=== PATIENT | female | born 1995 | race African-American/Black ===

== ENCOUNTER 2017-05-05 23:51 | Emergency (ER) | payer OTHER ==
[2017-05-06 01:38] VITALS: BP 113/80; PULSE 103; TEMP 98.7; BMI 19.6
--- NOTE | 2017-05-06 01:45 | PDOC ---
Attending Attestation - Resident Resident Name: Afua Sarmiento - HPI HPI: 05/08/17 16:23 pt presents to the ED complaining of lower abdominal pain. Denies other complaints. 12 weeks . Reports normal US in OB's office during this . - Physicial Exam PE: 05/08/17 16:26 Abdomen is non tender on my exam. + IUP on transabdominal bedside US.
--- NOTE | 2017-05-06 02:37 | PDOC ---
History of Present Illness - General Chief Complaint: Vaginal Bleeding Stated Complaint: CRAMPS/12 WEEKS Time Seen by Provider: 05/06/17 01:37 History Source: Patient Exam Limitations: No Limitations - History of Present Illness Initial Comments: This is a 21 yo female (about 12 weeks confirmed by OB with US) who presents with right upper abdominal/right lower chest pain. The pain started earlier today and was on-and-off for hours, then became constant at about 9 pm. She describes it as 10/10, sharp, radiating to the right mid- and upper-back, worsened with eating and deep breathing, and not improved with Tylenol (last dose at about 11 pm). She notes nausea and two episodes of vomiting since 9 pm, as well as mild constipation which is not outside of her baseline. She denies any fever, chills, diarrhea, vaginal bleeding, vaginal discharge, painful urination, or other symptoms. Past History - Past Medical History Allergies/Adverse Reactions: Allergies Allergy/AdvReac Type Severity Reaction Status Date / Time No Known Allergies Allergy Verified 05/06/17 01:35 Home Medications: Ambulatory Orders Ibuprofen [Motrin] 600 mg PO TID #20 tablet 03/09/14 NK [No Known Home Medication] 03/09/14 Penicillin V Potassium [Pen Vee K -] 250 mg PO TID #20 tablet 03/09/14 Suicide Attempt (Hx): No - Immunization History Immunization Up to Date: Yes - Psycho/Social/Smoking Cessation Hx Anxiety: No Suicidal Ideation: No Smoking History: Never smoked Have you smoked in the past 12 months: No Information on smoking cessation initiated: No Hx Alcohol Use: No Drug/Substance Use Hx: No Substance Use Type: None Review of Systems - Review of Systems Able to Perform ROS?: Yes Constitutional: No: Chills, Fever, Unexplained wgt Loss HEENTM: No: Nose Congestion, Throat Pain Respiratory: Yes: Shortness of Breath. No: Cough Cardiac (ROS): Yes: Chest Pain (right lower chest wall pain). No: Lightheadedness, Palpitations ABD/GI: Yes: Constipated (mild), Nausea, Vomiting. No: Diarrhea : No: Burning, Dysuria, Discharge Musculoskeletal: No: Back Pain, Neck Pain Integumentary: No: Bruising, Rash Neurological: No: Headache, Numbness, Tingling, Weakness, Dizziness Endocrine: No: Unexplained Weight Gain, Unexplained Weight Loss *Physical Exam - Vital Signs Last Vital Signs Temp Pulse Resp BP Pulse Ox 98.7 F 103 H 14 113/80 100 05/06/17 01:35 05/06/17 01:35 05/06/17 01:35 05/06/17 01:35 05/06/17 01:35 - Physical Exam General Appearance: Yes: Nourished. No: Apparent Distress HEENT: positive: EOMI, Normal Voice, Hearing Grossly Normal. negative: Scleral Icterus (R), Scleral Icterus (L), Nasal Congestion Neck: positive: Trachea midline, Supple. negative: Tender, Rigid Respiratory/Chest: positive: Lungs Clear, Normal Breath Sounds. negative: Respiratory Distress, Crackles, Rhonchi, Stridor, Wheezing Cardiovascular: positive: Regular Rhythm, Regular Rate. negative: Murmur Gastrointestinal/Abdominal: positive: Normal Bowel Sounds, Tender (epigastric and RUQ mild tenderness to palpation), Soft, Other (visibly gravid). negative: Organomegaly, Pulsatile Mass, Guarding Musculoskeletal: positive: Normal Inspection. negative: Decreased Range of Motion, Vertebral Tenderness Extremity: positive: Normal Capillary Refill, Normal Inspection, Normal Range of Motion. negative: Tender, Cyanosis Integumentary: positive: Normal Color, Dry, Warm. negative: Erythema, Rash, Bruising Neurologic: positive: email marketing manager II-XII NML intact, Fully Oriented, Alert, Normal Mood/ Affect, Normal Response, Motor Strength 5/5 Procedures - Bedside Ultrasound Bedside Ultrasound: supervisor metal hanging Other: IUP with FHR about 140 and frequent movement ED Treatment Course - LABORATORY CBC & Chemistry Diagram: 05/06/17 02:55 05/06/17 02:55 Medical Decision Making - Medical Decision Making 21 yo female 12 wks , reports US showing IUP, getting OB care. Presents with RUQ/right lower chest wall pain this evening. Exam with RUQ ttp and right lower chest wall tenderness to compression. Ddx includes ectopic , PE, cholecystitis, UTI wwo pyelonephritis, pancreatitis, costochondritis. Ordered are CBC, CMP, lipase, beta-hCG quant, UA w/ culture. Pain improves while in the ED without medications. Bedside US early OB shows IUP with FHR around 140, no pelvic free fluid. Bedside RUQ US shows GB without stones, wall thickening, or pericholecystic fluid. Bedside right kidney US without hydronephrosis. UA is negative and the patient does want to go home. She is advised to take Tylenol for pain and return for any emergency concerns. She will follow up with her LEAD SIMULATION MODELING ENGINEER on Friday as scheduled. *DC/Admit/Observation/Transfer Diagnosis at time of Disposition: Acute chest wall pain - Discharge Dispostion Disposition: HOME Condition at time of disposition: Stable Admit: No - Patient Instructions Printed Discharge Instructions: DI for Costochondritis Additional Instructions: You were seen tonight for right lower chest wall pain. Most likely this is musculoskeletal in nature, meaning a muscle strain/sprain or inflammation around the ribs. We checked your blood and urine and there were no concerning laboratory findings. Please continue to take Tylenol 650 mg every 4-6 hours for this pain. You will need to follow up with your primary doctor and your LEAD SIMULATION MODELING ENGINEER as scheduled on Friday, or return to the ED for fever, severe pain, vaginal bleeding, or other emergency symptoms. - Attestations Physician Attestion: 05/06/17 03:57 I, Dr. Afua Sarmiento, attest that this document has been prepared under my direction and personally reviewed by me in its entirety. I further attest, that it accurately reflects all work, treatment, procedures and medical decision -making performed by me.
[2017-05-06 02:52] LABS: URINE APPEARANCE CLEAR; URINE BILIRUBIN NEGATIVE (NEGATIVE); URINE BLOOD NEGATIVE (NEGATIVE); URINE COLOR LTYELLOW; URINE GLUCOSE (UA) NEGATIVE (NEGATIVE); URINE KETONE NEGATIVE (NEGATIVE); URINE LEUK ESTERASE NEGATIVE (NEGATIVE); URINE NITRITE NEGATIVE (NEGATIVE); URINE PROTEIN NEGATIVE (NEGATIVE); URINE UROBILINOGEN NEGATIVE mg/dL (0.2-1.0)
[2017-05-06 03:03] LABS: BASOPHIL 1.1 % (0-2.0); EOSINOPHIL 2.3 % (0-4.5); MCH 27.3 pg (25.7-33.7); MCHC 32.7 g/dl (32.0-36.0); MEAN CELL VOLUME 83.4 fl (80-96); NEUTROPHILS 65.2 % (42.8-82.8); PLATELET COUNT 225 K/MM3 (134-434); RDW 16.6 % (11.6-15.6); WHITE BLOOD COUNT 10.7 K/mm3 (4.0-10.0)
[2017-05-06 03:26] LABS: ALBUMIN 3.4 g/dl (3.4-5.0); ANION GAP 8 (8-16); BILIRUBIN,TOTAL 0.2 mg/dL (0.2-1.0); CALCIUM 8.9 mg/dL (8.5-10.1); CO2 26 mmol/L (21-32); CREATININE 0.7 mg/dL (0.55-1.02); GLUCOSE,RANDOM 95 mg/dL (74-106); SGOT/AST 16 U/L (15-37); SGPT/ALT 13 U/L (12-78)
[2017-05-06 03:41] LABS: ALK PHOS 71 U/L (45-117)
== END 2017-05-06 04:53 | disposition home or self-care (01) ==
LOC: JER 23:51
DX: O99.89 Other specified diseases and conditions complicating pregnancy, childbirth and the puerperium (principal); M94.0 Chondrocostal junction syndrome [Tietze]; Z3A.12 12 weeks gestation of pregnancy
CPT/HCPCS: 36415; 80053; 81003; 83690; 84702; 85025; 87086; 99282-25

== ENCOUNTER 2017-06-20 14:40 | Emergency (ER) | payer OTHER ==
[2017-06-20 14:47] VITALS: BP 115/62; PULSE 80; TEMP 98.3; BMI 21.6
--- NOTE | 2017-06-20 16:59 | PDOC ---
History of Present Illness - General Chief Complaint: Pain Stated Complaint: PCP SENT/std Time Seen by Provider: 06/20/17 16:43 History Source: Patient Exam Limitations: No Limitations - History of Present Illness Initial Comments: 06/20/17 16:53 06/20/17 16:54 My Chief Complaint: Patient here sent by VET ASSISTANT to have ceftriaxone injection History of present illness: Patient is a 21-year-old female sent here by Dr. Karen Acuna for an injection of ceftriaxone 250 mg IM to treat prophylactically for exposure to gonorrhea possibly chlamydia. Patient is 19 weeks . Patient has vial of ceftriaxone that was ordered by Dr. Galloway, vial to brought to pharmacy to have vial verified that the vial she has is ceftriaxone however due to it not being from here will order ceftriaxone 250 mg IM from our stock. Patient denies any pelvic pain or any vaginal discharge. Patient denies urinary symptoms.Pt.';s significant other tested positive for gonorrhea recently. 06/20/17 16:59 Timing/Duration: unsure Associated Symptoms: reports: denies symptoms Past History - Past Medical History Allergies/Adverse Reactions: Allergies Allergy/AdvReac Type Severity Reaction Status Date / Time No Known Allergies Allergy Verified 06/20/17 14:42 Home Medications: Ambulatory Orders NK [No Known Home Medication] 06/20/17 Suicide Attempt (Hx): No Other medical history: none - Immunization History Immunization Up to Date: Yes - Psycho/Social/Smoking Cessation Hx Anxiety: No Suicidal Ideation: No Smoking History: Never smoked Have you smoked in the past 12 months: No Information on smoking cessation initiated: No Hx Alcohol Use: No Drug/Substance Use Hx: No Substance Use Type: None Review of Systems - Review of Systems Able to Perform ROS?: Yes Constitutional: No: Symptoms Reported HEENTM: No: Symptoms Reported Respiratory: No: Symptoms reported Cardiac (ROS): No: Symptoms Reported ABD/GI: No: Symptoms Reported : Yes: Other (exposed to gonorrhea) Musculoskeletal: No: Symptoms Reported Integumentary: No: Symptoms Reported *Physical Exam - Vital Signs Last Vital Signs Temp Pulse Resp BP Pulse Ox 98.3 F 80 18 115/62 100 06/20/17 14:44 06/20/17 14:44 06/20/17 14:44 06/20/17 14:44 06/20/17 14:44 - Physical Exam General Appearance: Yes: Appropriately Dressed Respiratory/Chest: positive: Lungs Clear, Normal Breath Sounds. negative: Chest Tender, Respiratory Distress Cardiovascular: positive: Regular Rhythm, Regular Rate, S1, S2 Gastrointestinal/Abdominal: positive: Normal Bowel Sounds, Soft. negative: Tender, Organomegaly, Distended, Guarding, Rebound, Tenderness, Hepatomegaly, Spleenomegaly Integumentary: positive: Normal Color Neurologic: positive: Alert, Normal Response Medical Decision Making - Medical Decision Making 06/20/17 16:59 Patient is a 21-year-old female sent here by Dr. Karen Acuna for an injection of ceftriaxone 250 mg IM to treat prophylactically for exposure to gonorrhea possibly chlamydia. Patient is 19 weeks . Patient has vial of ceftriaxone that was ordered by Dr. Galloway, vial to brought to pharmacy to have vial verified that the vial she has is ceftriaxone however due to it not being from here will order ceftriaxone 250 mg IM from our stock. Patient denies any pelvic pain or any vaginal discharge. Patient denies urinary symptoms.Pt.'; s significant other tested positive for gonorrhea recently. Pt. also has rx for azithromycin and had it filled will take at home. 06/20/17 17:00 exposure to STD gonorrhea PLAN: ceftrioxone 250 mg Im PT TO FOLLOW INSTRUCTIONS WITH [employer] CONSULTANT 06/20/17 17:38 TAKE AZITHROMYCIN ORDERED BY DR. ACUNA 06/20/17 17:47 *DC/Admit/Observation/Transfer Diagnosis at time of Disposition: Exposure to sexually transmitted disease (STD) - Discharge Dispostion Disposition: HOME Condition at time of disposition: Stable - Patient Instructions Additional Instructions: TAKE AZITHROMYCIN ORDERED BY YOUR DOCTOR FRANCIA RETURN TO EMERGENCY ROOM IF ANY PELVIC DISCOMFORT, FEVER, NAUSEA OR VOMITING OR ANY NEW SYMPTOMS DEVELOP TODAY YOU WERE GIVEN INJECTION OF ROCEPHIN (CEFTRIOXONE) USE CONDOMS WITH SEXUAL RELATIONS PATIENT VOICED UNDERSTANDING OF DISCHARGE INSTRUCTIONS AND ALL QUESTIONS WERE ANSWERED
== END 2017-06-20 17:52 | disposition home or self-care (01) ==
LOC: JERFT 14:40
DX: O98.212 Gonorrhea complicating pregnancy, second trimester (principal); A54.89 Other gonococcal infections; Z3A.19 19 weeks gestation of pregnancy
CPT/HCPCS: 96372; 99281-25

== ENCOUNTER 2017-09-18 08:45 | Emergency (ER) | payer OTHER ==
[2017-09-18 08:56] VITALS: BMI 22.6
--- NOTE | 2017-09-18 08:56 | PDOC ---
History of Present Illness <Eben Melissa - Last Filed: 09/18/17 14:17> - History of Present Illness Initial Comments: 09/18/17 09:54 Ms. Mcmillan is a 21 yo at 31 weeks gestation with no pmh who presents complaining of a 2 day history of R chest pain radiating to her R arm. She reports she was at work when her chest started hurting and she experienced the right arm pain. 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 She says the pain had initially caused her to sit down and rest but had mostly resolved; it got worse yesterday however and she reports she was tossing and turning all last night and was unable to sleep from the pain. The pain was initially quick in onset and is back to it's original level. She reports she is having trouble catching her breath and had subjective fevers/chills last night. The patient denies headache and dizziness. Denies nausea, vomit, diarrhea and constipation. Denies dysuria, frequency, urgency and hematuria. Allergies: NKDA VERIFICATION REP: Jazmine Leon (sp?) 09/18/17 11:16 <Pedro Pablo Christiansen - Last Filed: 09/18/17 14:36> - General Chief Complaint: Chest Pain Stated Complaint: CHEST PAIN (31 WKS ) Time Seen by Provider: 09/18/17 08:56 Past History <Eben Melissa - Last Filed: 09/18/17 14:17> - Past Medical History CVA: No COPD: No DVT: No - Immunization History Immunization Up to Date: Yes - Suicide/Smoking/Psychosocial Hx Smoking History: Never smoked Have you smoked in the past 12 months: No Information on smoking cessation initiated: No Hx Alcohol Use: No Drug/Substance Use Hx: No Substance Use Type: None <Pedro Pablo Christiansen - Last Filed: 09/18/17 14:36> - Past Medical History Allergies/Adverse Reactions: Allergies Allergy/AdvReac Type Severity Reaction Status Date / Time No Known Allergies Allergy Verified 09/18/17 08:51 Home Medications: Ambulatory Orders Iron 1 tab PO DAILY 09/18/17 Vits #93/Iron Fum/FA [ Formula Tablet] 1 each PO DAILY 12/07/ 17 Review of Systems - Review of Systems Comments:: 09/18/17 10:11 GENERAL/CONSTITUTIONAL: +1 day of fevers and chills. No weakness. HEAD, EYES, EARS, NOSE AND THROAT: No change in vision. No ear pain or discharge. No sore throat. CARDIOVASCULAR: +Right sided chest pain with associated shortness of breath RESPIRATORY: No cough, wheezing, or hemoptysis. GASTROINTESTINAL: No nausea, vomiting, diarrhea or constipation. GENITOURINARY: No dysuria, frequency, or change in urination. MUSCULOSKELETAL: No joint or muscle swelling or pain. No neck or back pain. SKIN: No rash NEUROLOGIC: No headache, vertigo, loss of consciousness, or change in strength/ sensation. ENDOCRINE: No increased thirst. No abnormal weight change HEMATOLOGIC/LYMPHATIC: No anemia, easy bleeding, or history of blood clots. ALLERGIC/IMMUNOLOGIC: No hives or skin allergy. <Pedro Pablo Christiansen - Last Filed: 09/18/17 14:36> *Physical Exam - Vital Signs Last Vital Signs Temp Pulse Resp BP Pulse Ox 97.7 F 81 18 120/78 100 09/18/17 08:52 09/18/17 14:08 09/18/17 14:08 09/18/17 14:08 09/18/17 14:08 <Eben Melissa - Last Filed: 09/18/17 14:17> - Vital Signs Last Vital Signs Temp Pulse Resp BP Pulse Ox 97.7 F 96 H 16 131/61 100 09/18/17 08:52 09/18/17 08:52 09/18/17 08:52 09/18/17 08:52 09/18/17 08:52 - Physical Exam Comments: 09/18/17 10:13 GENERAL: Awake, alert, and fully oriented HEAD: No signs of trauma, normocephalic, atraumatic EYES: PERRLA, EOMI, sclera anicteric, conjunctiva clear ENT: Auricles normal inspection, hearing grossly normal, nares patent, oropharynx clear without exudates. Moist mucosa NECK: Normal ROM, supple, no lymphadenopathy, JVD, or masses LUNGS: +Breathing rapidly, reproducible Right sided chest pain. Speaks full sentences, clear to auscultation bilaterally HEART: +Slightly tachy, regular rhythm, normal S1 and S2, no murmurs, rubs or gallops, peripheral pulses normal and equal bilaterally. ABDOMEN: Soft, nontender, normoactive bowel sounds. No guarding, no rebound. No masses EXTREMITIES: Normal inspection, Normal range of motion, no edema. No clubbing or cyanosis. NEUROLOGICAL: Cranial nerves II through XII grossly intact. Normal speech, normal gait, no focal sensorimotor deficits SKIN: Warm, Dry, normal turgor, no rashes or lesions noted. <Pedro Pablo Christiansen - Last Filed: 09/18/17 14:36> ED Treatment Course - LABORATORY CBC & Chemistry Diagram: 09/18/17 09:35 09/18/17 09:35 - ADDITIONAL ORDERS Additional order review: Laboratory Results 09/18/17 09/18/17 09/18/17 10:05 10:05 10:05 PT with INR 9.40 L INR 0.83 L PTT (Actin FS) 23.6 L D-Dimer 693 H Sodium Potassium Chloride Carbon Dioxide Anion Gap BUN Creatinine Creat Clearance w eGFR Random Glucose Calcium Total Bilirubin AST ALT Alkaline Phosphatase Creatine Kinase Troponin I B-Natriuretic Peptide Total Protein Albumin Urine Color Urine Appearance Urine pH Ur Specific Nash Urine Protein Urine Glucose (UA) Urine Ketones Urine Blood Urine Nitrite Urine Bilirubin Urine Urobilinogen Urine WBC (Auto) Urine RBC (Auto) Ur Epithelial Cells Urine Bacteria 09/18/17 09/18/17 09/18/17 10:05 09:35 09:35 PT with INR INR PTT (Actin FS) D-Dimer Sodium 137 Potassium 3.7 Chloride 105 Carbon Dioxide 25 Anion Gap 7 L BUN 5 L D Creatinine 0.8 Creat Clearance w eGFR > 60 Random Glucose 67 L D Calcium 8.8 Total Bilirubin 0.3 D AST 23 D ALT 28 D Alkaline Phosphatase 109 D Creatine Kinase 93 Troponin I < 0.02 B-Natriuretic Peptide 39.76 Total Protein 7.5 Albumin 3.1 L Urine Color Straw Urine Appearance Clear Urine pH 9.0 H D Ur Specific Nash 1.005 Urine Protein Negative Urine Glucose (UA) Negative Urine Ketones Negative Urine Blood Negative Urine Nitrite Negative Urine Bilirubin Negative Urine Urobilinogen Negative Urine WBC (Auto) 5 Urine RBC (Auto) 2 Ur Epithelial Cells Rare Urine Bacteria Rare 09/18/17 09:35 RBC 3.79 MCV 77.8 L MCHC 31.7 L RDW 15.7 H MPV 8.3 Neutrophils % 66.0 Lymphocytes % 22.2 Monocytes % 8.8 Eosinophils % 1.8 Basophils % 1.2 - RADIOLOGY Radiology Studies Ordered: Category Date Time Status RIBS RIGHT SIDE [RAD] Stat Radiology 09/18/17 09:39 Completed DUPLEX VASCUL US-2LEGS [US] Stat Ultrasound 09/18/17 09:38 Completed - Medications Given in the ED: ED Medications Discontinued Medications Generic Name Dose Route Start Last Admin Trade Name Sen PRN Reason Stop Dose Admin Acetaminophen 1,000 mg 09/18/17 09:30 09/18/17 09:49 Ofirmev Injection - IVPB 09/18/17 09:31 1,000 mg ONCE ONE Administration Sodium Chloride 1,000 mls @ 1,000 mls/hr 09/18/17 09:29 09/18/17 09:50 Normal Saline - IV 09/18/17 10:28 1,000 mls/hr ASDIR STA Administration Morphine Sulfate 4 mg 09/18/17 10:57 09/18/17 11:52 Morphine Injection - IVPUSH 09/18/17 10:58 4 mg ONCE ONE Administration <Eben Melissa - Last Filed: 09/18/17 14:17> - LABORATORY CBC & Chemistry Diagram: 09/18/17 09:35 09/18/17 09:35 <Pedro Pablo Christiansen - Last Filed: 09/18/17 14:36> Medical Decision Making - Medical Decision Making 09/18/17 10:16 Ms. Mcmillan presents with symptoms concerning for PE. Given tachycardia, pain, and hypercoagulable state will evaluate w/ d-dimer and duplex study. 09/18/17 11:21 Labs concerning for D-Dimer 693. Upon chart review patient noted to have presented for similar complaint on 05/06. VERIFICATION REP paged for consult. 09/18/17 11:[address] Arroyo. Recommended CTA with non-stress evaluation after by VERIFICATION REP if negative. Will comply. 09/18/17 11:49 Discussed risks/benefits of CTA while with patient including risks to fetus. Patient will sign off on procedure given evaluation needs and VERIFICATION REP recommendation. 09/18/17 14:26 No PE noted by PE. Will send to VERIFICATION REP for further evaluation. <Pedro Pablo Christiansen - Last Filed: 09/18/17 14:36> *DC/Admit/Observation/Transfer <Eben Melissa - Last Filed: 09/18/17 14:17> <Pedro Pablo Christiansen - Last Filed: 09/18/17 14:36> Diagnosis at time of Disposition: Acute chest wall pain - Discharge Dispostion Disposition: HOME - Patient Instructions Printed Discharge Instructions: DI for Atypical Chest Pain Additional Instructions: Please follow up with your primary doctor within 1 week for further evaluation of your chest pain. There was a nodule in your left lung that is likely harmless , but you need repeat imaging in 6 months as there is a small chance this could represent cancer. If you experience worsening chest pain, shortness of breath, or any other concerning symptoms, return to the ER immediately.
[2017-09-18] MEDS ORDERED: SODIUM CHLORIDE 1,000 ML IV STA ×2 (09:29→14:16)
[2017-09-18] MEDS ORDERED: ACETAMINOPHEN 1000 MG/100 ML VIAL (NON FORMULARY) IVPB ONE (09:30)
[2017-09-18 09:47] LABS: BASOPHIL 1.2 % (0-2.0); EOSINOPHIL 1.8 % (0-4.5); MCH 24.6 pg (25.7-33.7); MCHC 31.7 g/dl (32.0-36.0); MEAN CELL VOLUME 77.8 fl (80-96); MEAN PLT VOLUME 8.3 fl (7.5-11.1); PLATELET COUNT 264 K/MM3 (134-434); RDW 15.7 % (11.6-15.6); WHITE BLOOD COUNT 8.7 K/mm3 (4.0-10.0)
[2017-09-18] MEDS ORDERED: ACETAMINOPHEN INJECTION 100 ML IVPB ONE (09:47)
--- NOTE | 2017-09-18 09:50 | PDOC ---
Attending Attestation - Medical Decision Making 09/18/17 11:22 Dr. Casiano paged via phone answering service. Awaiting call back. 09/18/17 11:27 Dr. Willis responded to the page and the patients case was discussed Documentation prepared by Kraey Arevalo, acting as medical services assistant for Eben Melissa MD <Karey Arevalo - Last Filed: 09/18/17 11:27> - Resident Resident Name: Pedro Pablo Christiansen - ED Attending Attestation I have performed the following: I have examined & evaluated the patient, The case was reviewed & discussed with the resident, I agree w/resident's findings & plan, Exceptions are as noted - HPI HPI: 09/18/17 09:45 21 F , @ 31 weeks, with no PMH presents to ER with R sided chest pain and SOB. Pt states that her symptoms began 2 days ago with R chest and arm pain. She initially thought it was muscular, as she works in a correction and helps move patients. However, the pain progressively worsened to the point of being unable to take a deep breath. She states that she also feels short of breath at rest due to the pain in her chest. Pt denies F/C. Denies any traumatic injury. Denies abd pain. Denies vaginal discharge/bleeding or dysuria. - Physicial Exam PE: 09/18/17 09:50 "GENERAL: Awake, alert, and fully oriented, in no acute distress HEAD: No signs of trauma EYES: PERRLA, EOMI, sclera anicteric, conjunctiva clear ENT: Auricles normal inspection, hearing grossly normal, nares patent, oropharynx clear without exudates. Moist mucosa NECK: Nontender, no stepoffs, Normal ROM, supple, no lymphadenopathy, JVD, or masses LUNGS: Breath sounds equal, clear to auscultation bilaterally. No wheezes, and no crackles CHEST: R anterior chest wall TTP, no crepitus HEART: Regular rate and rhythm, normal S1 and S2, no murmurs, rubs or gallops ABDOMEN: Soft, gravid, nontender, normoactive bowel sounds. No guarding, no rebound. No masses EXTREMITIES: Normal range of motion, no edema. No clubbing or cyanosis. No cords, erythema, or tenderness NEUROLOGICAL: Cranial nerves II through XII intact. 5/5 strength and sensation in all extremities, Normal speech, normal gait SKIN: Warm, Dry, normal turgor, no rashes or lesions noted. " - Medical Decision Making 09/18/17 09:51 21 F 31 weeks , presenting with R sided pleuritic chest pain and SOB. Likely msk in etiology. However, presentation is concerning for PE given hypercoagulable state. Vitals wnl at this time, and pt with no evidence of DVT on exam. However, given symptoms and risk factors, will need to rule out PE. Also consider PNA or PTX. - Labs, ddimer, trop/BNP - CXR 09/18/17 11:21 CXR and rib XR unremarkable. Ddimer elevated >600. Labs otherwise unremarkable. Will consult soft shoe dancer for imaging recommendations 09/18/17 11:[address] Casiano, OB missile control pilot, who recommends obtaining CTA rather than V/Q or MRA to r/o PE. 09/18/17 14:17 CTA chest negative for PE. Pt to be transferred to L&D for monitoring at this time. <Eben Melissa - Last Filed: 09/18/17 14:17>
[2017-09-18 10:14] LABS: ALBUMIN 3.1 g/dl (3.4-5.0); ANION GAP 7 (8-16); BILIRUBIN,TOTAL 0.3 mg/dL (0.2-1.0); CALCIUM 8.8 mg/dL (8.5-10.1); CO2 25 mmol/L (21-32); CREATININE 0.8 mg/dL (0.55-1.02); GLUCOSE,RANDOM 67 mg/dL (74-106); SGOT/AST 23 U/L (15-37); SGPT/ALT 28 U/L (12-78); TOT PROT 7.5 g/dl (6.4-8.2)
[2017-09-18 10:15] LABS: ALK PHOS 109 U/L (45-117); CPK 93 IU/L (26-192); TROPONIN I < 0.02 ng/ml (0.00-0.05)
[2017-09-18 10:22] LABS: URINE APPEARANCE CLEAR; URINE BILIRUBIN NEGATIVE (NEGATIVE); URINE BLOOD NEGATIVE (NEGATIVE); URINE COLOR STRAW; URINE GLUCOSE (UA) NEGATIVE (NEGATIVE); URINE KETONE NEGATIVE (NEGATIVE); URINE NITRITE NEGATIVE (NEGATIVE); URINE PROTEIN NEGATIVE (NEGATIVE); URINE UROBILINOGEN NEGATIVE mg/dL (0.2-1.0)
[2017-09-18 10:24] LABS: URINE LEUK ESTERASE 3+ (NEGATIVE)
[2017-09-18 10:27] LABS: URINE BACTERIA RARE /hpf (NONE SEEN); URINE RBC 2 /hpf (0-3); URINE WBC 5 /hpf (3-5)
[2017-09-18] MEDS ORDERED: morphine CARPU-JECT 4 MG/1 ML DISP.SYRIN IVPUSH ONE (10:57)
[2017-09-18 11:24] LABS: PROTHROMBIN TIME (PATIENT) 9.4 SEC (9.98-11.88)
[2017-09-18 11:25] LABS: INR 0.83 (0.82-1.09)
[2017-09-18] MEDS ORDERED: morphine SULFATE 4 MG/ML VIAL ONE (11:46)
--- NOTE | 2017-09-18 15:10 | EKG ---
Test Reason : Blood Pressure : / mmHG Vent. Rate : 080 BPM Atrial Rate : 080 BPM P-R Int : 118 ms QRS Dur : 082 ms QT Int : 364 ms P-R-T Axes : 055 038 028 degrees QTc Int : 419 ms NORMAL SINUS RHYTHM POSSIBLE LEFT ATRIAL ENLARGEMENT BORDERLINE ECG WHEN COMPARED WITH ECG OF 18-SEP-2017 08:49, NO SIGNIFICANT CHANGE WAS FOUND Confirmed by ASTRID LY MD ([id number]) on 09/18/2017 3:09:58 PM Referred By: Confirmed By:ASTRID LY MD
[2017-09-18 15:51] VITALS: BP 115/66; PULSE 77; TEMP 98.7
[2017-09-18 17:59] LABS: URINE LEUK ESTERASE 3+ (NEGATIVE)
--- NOTE | 2017-09-23 14:39 | EKG ---
Test Reason : Blood Pressure : / mmHG Vent. Rate : 088 BPM Atrial Rate : 088 BPM P-R Int : 114 ms QRS Dur : 080 ms QT Int : 344 ms P-R-T Axes : 062 059 031 degrees QTc Int : 416 ms NORMAL SINUS RHYTHM NORMAL ECG NO PREVIOUS ECGS AVAILABLE Confirmed by MOJGAN FERNANDEZ, SUHA ([id number] on 09/23/2017 2:39:31 PM Referred By: Confirmed By:SUHA ULRICH MD
== END 2017-09-18 15:40 | disposition home or self-care (01) ==
LOC: JER 08:45
PROC: 3E0337Z Introduction of Electrolytic and Water Balance Substance into Peripheral Vein, Percutaneous Approach (ICD-10-PCS; principal; 2017-09-18)
DX: O99.89 Other specified diseases and conditions complicating pregnancy, childbirth and the puerperium (principal); R07.89 Other chest pain; Z3A.31 31 weeks gestation of pregnancy
CPT/HCPCS: 36415; 71101-TC-RT; 71275-TC; 80053; 81003; 81015; 82550; 83880; 84484; 85025; 85379; 85610; 85730; 93005; 93010; 93970-TC; 99283-25

== ENCOUNTER 2017-11-07 06:50 | Inpatient (IN) | payer OTHER ==
[2017-11-07] MEDS ORDERED: ELECTROLYTE-148 SOLN 1,000 ML IV SCH ×3 (07:00→08:30)
[2017-11-07] MEDS ORDERED: AMPICILLIN - 2 GM in SODIUM CHLORIDE 100 ML IVPB ONE (07:30)
[2017-11-07] MEDS ORDERED: AMPICILLIN SODIUM 2 GM VIAL ONE (07:32)
[2017-11-07] MEDS ORDERED: BUTORPHANOL TARTRATE 1 MG/ML VIAL IVPB ONE (08:16)
--- NOTE | 2017-11-07 08:20 | HP ---
Past Medical History - Primary Care Physician PCP:: Alisha Acuna - Admission Chief Complaint: Labor. Right labial cyst History of Present Illness: 21 P0 EDC EGA admitted due to labor no rom no bleeding +AFM History Source: Patient Limitations to Obtaining History: No Limitations - Past Medical History ...: 1 - Past Surgical History Past Surgical History: Yes: None Hx Myomectomy: No Hx Transabdominal Cerclage: No - Smoking History Smoking history: Never smoked Have you smoked in the past 12 months: No - Alcohol/Substance Use Hx Alcohol Use: No History of Substance Use: reports: None - Social History History of Recent Travel: Yes Home Medications - Allergies Allergies/Adverse Reactions: Allergies Allergy/AdvReac Type Severity Reaction Status Date / Time No Known Allergies Allergy Verified 11/07/17 07:49 - Home Medications Home Medications: Ambulatory Orders Iron 1 tab PO DAILY 09/18/17 Vit 93/Iron Fum/Folic [ Formula Tablet] 1 each PO DAILY Review of Systems - Review of Systems Constitutional: reports: No Symptoms Eyes: reports: No Symptoms HENT: reports: No Symptoms Neck: reports: No Symptoms Cardiovascular: reports: No Symptoms Respiratory: reports: No Symptoms Gastrointestinal: reports: Abdominal Pain Genitourinary: reports: No Symptoms Breasts: reports: No Symptoms Reported Musculoskeletal: reports: No Symptoms Integumentary: reports: No Symptoms Neurological: reports: No Symptoms Endocrine: reports: No Symptoms Hematology/Lymphatic: reports: No Symptoms Psychiatric: reports: No Symptoms Physical Exam - Maternity Vital Signs: Vital Signs Temperature 97.4 F L 11/07/17 08:00 Pulse Rate 77 11/07/17 08:00 Respiratory Rate 20 11/07/17 08:00 Blood Pressure 124/74 11/07/17 08:00 O2 Sat by Pulse Oximetry (%) Constitutional: Yes: Well Nourished, No Distress HENT: Yes: WNL Neck: Yes: WNL Cardiovascular: Yes: WNL Breast(s): Yes: WNL - Abdominal Exam/OB Fundal Height: 39 Number of Fetuses: Single Presentation: Vertex Contractions: Yes Regularity: Regular Intensity: Mild/Mod Monitor Mode: External Heart Rate Location: [facility] Category: I Accelerations: Non-Uniform Decelerations: None - Vaginal Exam/OB Dilatation (cm): 2 Effacement (%): 100 Amniotic Membrane Status: Bulging Presentation: Vertex/Position - Physical Exam Musculoskeletal: Yes: WNL Extremities: Yes: WNL Edema: No Integumentary: Yes: WNL ...Motor Strength: WNL Hemorrhage Risk Assessment - Risk Factors Assessment/Plan: ACTIve labor Cat 1 Plan admit' stadol or Epidura/ Problem List - Problems (1) contractions Code(s): O47.9 - FALSE LABOR, UNSPECIFIED Assessment/Plan IUP at 38.6 week labor Cat 1 No ROM Plan admit to LD anticipate vaginal delivery
[2017-11-07 08:25] VITALS: BMI 24.4
[2017-11-07 09:02] LABS: BASO % 0.8 % (0-2.0); EOS % 0.9 % (0-4.5); HEMATOCRIT 29.6 % (32.4-45.2); HEMOGLOBIN 8.9 GM/dL (10.7-15.3); LYMPH % 17.4 % (8-40); MCH 21.6 pg (25.7-33.7); MCHC 29.9 g/dl (32.0-36.0); MEAN CELL VOLUME 72.1 fl (80-96); MEAN PLT VOLUME 8.9 fl (7.5-11.1); MONO % 6.9 % (3.8-10.2); PLATELET COUNT 271 K/MM3 (134-434); RDW 16.9 % (11.6-15.6); WHITE BLOOD COUNT 9.8 K/mm3 (4.0-10.0)
[2017-11-07 09:11] LABS: ADD RBC MORPHOLOGY YES
[2017-11-07] MEDS ORDERED: PROMETHAZINE HCL 25 MG/1 ML VIAL IVPB ONE (09:15)
[2017-11-07 09:16] LABS: INR 0.86 (0.82-1.09); PROTHROMBIN TIME (PATIENT) 9.7 SEC (9.98-11.88)
[2017-11-07 09:19] LABS: ACTIVATED PTT 24.9 SECONDS (26.9-34.4)
[2017-11-07] MEDS ORDERED: BUTORPHANOL TARTRATE 1 MG/ML VIAL ONE ×2 (09:22)
[2017-11-07] MEDS ORDERED: PROMETHAZINE HCL 25 MG/1 ML VIAL ONE (09:22)
[2017-11-07 09:24] LABS: ANION GAP 10 (8-16); BLOOD UREA NITROGEN 6 mg/dL (7-18); CALCIUM 8.2 mg/dL (8.5-10.1); CHLORIDE 104 mmol/L (98-107); CO2 24 mmol/L (21-32); CREATININE 0.6 mg/dL (0.55-1.02); GLUCOSE,RANDOM 71 mg/dL (74-106); POTASSIUM 4.1 mmol/L (3.5-5.1); SODIUM 138 mmol/L (136-145)
[2017-11-07] MEDS: AMPICILLIN - 1 GM in SODIUM CHLORIDE 100 ML IVPB SCH ×3 (11:07→21:08)
[2017-11-07 12:46] LABS: ANISOCYTOSIS 2+; PLATELET ESTIMATE NORMAL
[2017-11-07] MEDS ORDERED: OXYTOCIN 20 UNITS in 0.9% NS 20 UNIT/1,000 ML INFUS.BAG IV ONE ×2 (14:20→16:23)
[2017-11-07] MEDS ORDERED: LIDOCAINE HCL 1% PRESERVATIVE FREE - 30ML VIAL ONE (14:20)
--- NOTE | 2017-11-07 15:07 | PN ---
Delivery - Delivery Vaginal Delivery: No Problems Type of Anesthesia: None Episiotomy/Laceration: None EBL (cc): 400 (shoulders delivered without complications) Delivery, Single - Stages of Labor Placenta: Yes: Spontaneous - Condition of Infant Infant Gender: Male Position: OA - Feeding Plan Initial Plan: Exclusive throughout hospitalization
[2017-11-07] MEDS ORDERED: BISACODYL 10 MG SUPP.RECT RC PRN (15:10)
[2017-11-07] MEDS ORDERED: METHYLERGONOVINE MALEATE 0.2 MG/1 ML AMP IM PRN (15:10)
[2017-11-07] MEDS ORDERED: BENZOCAINE 20% 57 GM BOTTLE TP PRN (15:10)
[2017-11-07] MEDS ORDERED: WITCH HAZEL 50% (TUCKS) 40 PAD/JAR PAD TP PRN (15:10)
[2017-11-07] MEDS ORDERED: BENZOCAINE 28 GM HEMORRHOIDAL OINTMENT PR PRN (15:10)
[2017-11-07] MEDS ORDERED: SODIUM CHLORIDE 0.9%/KCL 20 MEQ/1,000 ML INFUS.BAG IV SCH (16:00)
[2017-11-07] MEDS ORDERED: OXYTOCIN 20 UNITS in 0.9% NS 20 UNIT/1,000 ML INFUS.BAG IV SCH (16:15)
[2017-11-07] MEDS: IBUPROFEN 600 MG TABLET (FP) PO PRN ×2 (16:45→23:36)
[2017-11-07] MEDS: ACETAMINOPHEN 325 MG TABLET (FP) PO PRN ×2 (16:46→23:36)
--- NOTE | 2017-11-08 08:03 | PN ---
Post Progress Note Post Day: 1 Type of Delivery: Vital Signs: Vital Signs Temperature 98.4 F 11/08/17 05:38 Pulse Rate 81 11/08/17 05:38 Respiratory Rate 18 11/08/17 05:38 Blood Pressure 117/83 11/08/17 05:38 O2 Sat by Pulse Oximetry (%) 100 11/07/17 15:45 Breast Exam: Yes: Soft Uterus: Yes: Fundus Firm, Fundus below umbilicus Abdomen/GI: Yes: Abdomen soft, Passing flatus Lochia: Yes: Rubra Lochia, amount: Moderate Extremities: Yes: Calves non-tender Perineum: Yes: Intact Activity: Ambulating - Labs Labs: CBC WBC 9.8 K/mm3 (4.0-10.0) 11/07/17 08:40 RBC 4.10 M/mm3 (3.60-5.2) 11/07/17 08:40 Hgb 8.9 GM/dL (10.7-15.3) L 11/07/17 08:40 Hct 29.6 % (32.4-45.2) L 11/07/17 08:40 MCV 72.1 fl (80-96) L D 11/07/17 08:40 MCH 21.6 pg (25.7-33.7) L 11/07/17 08:40 MCHC 29.9 g/dl (32.0-36.0) L 11/07/17 08:40 RDW 16.9 % (11.6-15.6) H 11/07/17 08:40 Plt Count 271 K/MM3 (134-434) 11/07/17 08:40 MPV 8.9 fl (7.5-11.1) 11/07/17 08:40 Neutrophils % 74.0 % (42.8-82.8) 11/07/17 08:40 Lymphocytes % 17.4 % (8-40) D 11/07/17 08:40 Monocytes % 6.9 % (3.8-10.2) 11/07/17 08:40 Eosinophils % 0.9 % (0-4.5) 11/07/17 08:40 Basophils % 0.8 % (0-2.0) 11/07/17 08:40 Hypochromia 1+ 11/07/17 08:40 Platelet Estimate Normal 11/07/17 08:40 Polychromasia 1+ 11/07/17 08:40 Anisocytosis 2+ 11/07/17 08:40 Microcytosis 2+ 11/07/17 08:40 Other Findings, Remarks: continue vitamins continue post care
[2017-11-08 08:45] LABS: BASO % 0.4 % (0-2.0); EOS % 0.8 % (0-4.5); HEMATOCRIT 24.8 % (32.4-45.2); HEMOGLOBIN 7.4 GM/dL (10.7-15.3); LYMPH % 17.2 % (8-40); MCH 21.5 pg (25.7-33.7); MCHC 29.8 g/dl (32.0-36.0); MEAN CELL VOLUME 72.1 fl (80-96); MEAN PLT VOLUME 8.6 fl (7.5-11.1); MONO % 8.9 % (3.8-10.2); NEUT % 72.7 % (42.8-82.8); PLATELET COUNT 217 K/MM3 (134-434); RBC 3.44 M/mm3 (3.60-5.2); WHITE BLOOD COUNT 13.8 K/mm3 (4.0-10.0)
[2017-11-08] MEDS ORDERED: DIPHTH,PERTUSS(ACELL),TET 0.5 ML DISP.SYRIN IM ONE (14:00)
[2017-11-09] MEDS: IBUPROFEN 600 MG TABLET (FP) PO PRN (02:05)
[2017-11-09] MEDS: ACETAMINOPHEN 325 MG TABLET (FP) PO PRN (02:05)
[2017-11-09 09:18] VITALS: BP 112/57; PULSE 71; TEMP 98.5
--- NOTE | 2017-11-09 09:21 | DS ---
Physical Exam-[employer] Vital Signs: Vital Signs Temperature 98.5 F 11/09/17 08:00 Pulse Rate 71 11/09/17 08:00 Respiratory Rate 18 11/09/17 08:00 Blood Pressure 112/57 11/09/17 08:00 O2 Sat by Pulse Oximetry (%) 100 11/07/17 15:45 Constitutional: Yes: Well Nourished, No Distress Gastrointestinal: Yes: WNL, Normal Bowel Sounds ....Post : Yes: Uterus firm, Uterus non-tender Edema: No Neurological: Yes: WNL, Alert, Oriented Labs: CBC, BMP 11/08/17 08:00 11/07/17 08:40 Delivery - Delivery Vaginal Delivery: No Problems Type of Anesthesia: None Episiotomy/Laceration: None EBL (cc): 400 Delivery, Single - Stages of Labor Date 1st Stage Initiatied: 11/07/17 Time 1st Stage Initiated: 02:00 Date 2nd Stage Initiated: 11/07/17 Time 2nd Stage Initiated: 14:38 Date of Delivery: 11/07/17 Time of Delivery: 14:41 Time Placenta Delivered: 14:45 Placenta: Yes: Spontaneous - Condition of Dirt Supervisor/Blockman Present: No Infant Gender: Male Weight: 6 lb 1 oz Position: OA Total Hours ROM (Hrs/Mins): 0hrs 8min - 1 Minute Total Score: 9 5 Minutes Total Score: 9 - [place] Feeding Plan Initial Plan: Exclusive throughout hospitalization Discharge Summary Reason For Visit: LABOR Current Active Problems contractions (Acute) Condition: Good - Instructions Diet, Activity, Other Instructions: Physical activity Resume your normal everyday activity as tolerated no heavy lifting or exercise until seen by your surgeon. You may walk unlimited miranda of and climb stairs. You may resume driving the car when you feel safe and comfortable behind the wheel. No sexual activity as instructed. Wound care If you have a bandage, leave it on, and keep dry for 48-72 hours. After that time discard the outer bandage. If they are tapes on the skin under the out of bandage leave them in place. They will peel off in the next 7 to 10 days. Do Not Peel them off. You may shower the day after surgery. If there are tapes present on the skin, you may shower over them. Diet There are no dietary restrictions. Eat healthy, high-fiber foods. Drink 6 to 8 glasses of liquid each day. This will assist in keeping your bowels are regular. Pain management You may take Tylenol or acetaminophen or Ibuprofen (for example, Motrin, Advil etc.) from my pain prescription medication is ordered should be taken as prescribed for moderate to severe pain. Call MD for any of the following: Severe pain not relieved by medication Fever of 101 or higher Excessive bleeding or drainage on dressing Inability to urinate Referrals: Alisha Acuna MD [Staff Physician] - Disposition: HOME - Home Medications Comprehensive Discharge Medication List: Ambulatory Orders Iron 1 tab PO DAILY 09/18/17 Vit 93/Iron Fum/Folic [ Formula Tablet] 1 each PO DAILY Ibuprofen [Motrin -] 600 mg PO QID #28 tablet 11/07/17
== END 2017-11-09 12:15 | disposition home or self-care (01) | DRG 560 ==
LOC: JDEL 06:50 → JLDR 07:15 → J3W 16:30
PROVIDERS: ADMIT Obstetrics & Gynecology; ATTEND Obstetrics & Gynecology
PROC: 10E0XZZ Delivery of Products of Conception, External Approach (ICD-10-PCS; principal; 2017-11-07)
DX: O60.23X1 Term delivery with preterm labor, third trimester, fetus 1 (principal); Z3A.38 38 weeks gestation of pregnancy; Z37.0 Single live birth
CPT/HCPCS: 36415; 59409; 80048; 85025; 85610; 85730; 86593; 86850; 86900; 86901; 90715

== ENCOUNTER 2021-05-19 22:08 | Emergency (ER) | payer OTHER ==
[2021-05-19 22:17] VITALS: BP 114/70; PULSE 94; TEMP 98.1; BMI 22.1
== END 2021-05-20 00:58 | disposition left against medical advice (07) ==
LOC: JER 22:08
DX: R22.43 Localized swelling, mass and lump, lower limb, bilateral (principal); R21 Rash and other nonspecific skin eruption
CPT/HCPCS: 99281-25

== ENCOUNTER 2022-05-08 11:29 | Emergency (ER) | payer OTHER ==
[2022-05-08 11:53] VITALS: BMI 20.7
[2022-05-08] MEDS ORDERED: ALBUTEROL SO4 2.5/IPRATROPIUM 0.5 INH SOL 3 ML VIAL.NEB. NEB ONE (11:55)
[2022-05-08] MEDS ORDERED: ACETAMINOPHEN 325 MG TABLET (FP) PO ONE (13:53)
[2022-05-08 13:57] LABS: EOS % 6.8 % (0-4.5); HEMATOCRIT 29.7 % (32.4-45.2); HEMOGLOBIN 8.6 GM/dL (10.7-15.3); LYMPH % 16.7 % (8-40); MCH 19.4 pg (25.7-33.7); MCHC 28.8 g/dl (32.0-36.0); MEAN CELL VOLUME 67.3 fl (80-96); MEAN PLT VOLUME 7.8 fl (7.5-11.1); MONO % 12.7 % (3.8-10.2); NEUT % 62.8 % (42.8-82.8); PLATELET COUNT 274 10^3/uL (134-434); RBC 4.42 M/mm3 (3.60-5.2); RDW 18.3 % (11.6-15.6); WHITE BLOOD COUNT 7.6 K/mm3 (4.0-10.0)
[2022-05-08] MEDS ORDERED: ACETAMINOPHEN 325 MG TABLET (FP) ONE (13:59)
[2022-05-08 14:24] LABS: CHLORIDE 106 mmol/L (98-107); SODIUM 139 mmol/L (136-145)
[2022-05-08 14:25] LABS: ANISOCYTOSIS 3+; MACROCYTOSIS 0; OVALOCYTE 1+
[2022-05-08 14:26] LABS: ALBUMIN 3.7 g/dl (3.4-5.0); ANION GAP 8 MMOL/L (8-16); BLOOD UREA NITROGEN 6.1 mg/dL (7-18); CALCIUM 9.3 mg/dL (8.5-10.1); CO2 26 mmol/L (21-32); GLUCOSE,RANDOM 92 mg/dL (74-106)
[2022-05-08 14:29] LABS: SGOT/AST 16 U/L (15-37); SGPT/ALT 16 U/L (13-61)
[2022-05-08 14:30] LABS: CREATININE 0.8 mg/dL (0.55-1.3)
[2022-05-08 14:31] LABS: BILIRUBIN,TOTAL 0.3 mg/dL (0.2-1); TOT PROT 7.9 g/dl (6.4-8.2)
[2022-05-08 14:32] LABS: ALK PHOS 82 U/L (45-117)
[2022-05-08 15:45] VITALS: PULSE 85
[2022-05-08 17:28] VITALS: BP 122/68; RESP 20; TEMP 98.1
== END 2022-05-08 16:28 | disposition home or self-care (01) ==
LOC: JER 11:29
PROC: 3E0F7GC Introduction of Other Therapeutic Substance into Respiratory Tract, Via Natural or Artificial Opening (ICD-10-PCS; principal; 2022-05-08)
DX: R05.9 Cough, unspecified (principal); R51.9 Headache, unspecified
CPT/HCPCS: 0241U-QW; 36415; 71045-TC-FY; 80053; 84702; 85025; 85379; 99284-25

== ENCOUNTER 2023-01-22 23:16 | Emergency (ER) | payer OTHER ==
[2023-01-22 23:34] VITALS: BP 110/66; PULSE 93; RESP 18; TEMP 98.2; BMI 23.1
[2023-01-23] MEDS ORDERED: SODIUM CHLORIDE 0.9% 500 ML INFUS.BAG IV ONE (00:21)
[2023-01-23] MEDS ORDERED: METOCLOPRAMIDE HCL INJECTION 10 MG/2 ML VIAL IVPB ONE (00:21)
[2023-01-23] MEDS ORDERED: ACETAMINOPHEN 1000 MG/100 ML BAG IVPB ONE (00:31)
[2023-01-23 01:22] LABS: BASO % 0.3 % (0-2.0); EOS % 0.9 % (0-4.5); HEMATOCRIT 27.5 % (32.4-45.2); HEMOGLOBIN 8.1 GM/dL (10.7-15.3); LYMPH % 17.7 % (8-40); MCHC 29.4 g/dl (32.0-36.0); MEAN PLT VOLUME 8.5 fl (7.5-11.1); MONO % 8.6 % (3.8-10.2); NEUT % 72.5 % (42.8-82.8); PLATELET COUNT 271 10^3/uL (134-434); RBC 4.23 M/mm3 (3.60-5.2); RDW 18.1 % (11.6-15.6); WHITE BLOOD COUNT 4.7 K/mm3 (4.0-10.0)
[2023-01-23 01:23] LABS: URINE APPEARANCE CLEAR; URINE BILIRUBIN NEGATIVE (NEGATIVE); URINE COLOR YELLOW; URINE GLUCOSE (UA) NEGATIVE (NEGATIVE); URINE KETONE NEGATIVE (NEGATIVE); URINE LEUK ESTERASE NEGATIVE (NEGATIVE); URINE NITRITE NEGATIVE (NEGATIVE); URINE PROTEIN NEGATIVE (NEGATIVE)
[2023-01-23 01:25] LABS: HCG,QUALITATIVE URINE Negative
[2023-01-23 01:27] LABS: MCH 19.1 pg (25.7-33.7)
[2023-01-23 01:37] LABS: IRON SERUM 19 ug/dL (50-175)
[2023-01-23 01:41] LABS: ALBUMIN 3.9 g/dl (3.4-5.0); BLOOD UREA NITROGEN 8.8 mg/dL (7-18); CALCIUM 8.8 mg/dL (8.5-10.1); MAGNESIUM 1.9 mg/dL (1.8-2.4)
[2023-01-23 01:44] LABS: CREATININE 0.8 mg/dL (0.55-1.3); PHOSPHOROUS 2.9 mg/dL (2.5-4.9)
[2023-01-23 01:46] LABS: TOT PROT 7.8 g/dl (6.4-8.2)
[2023-01-23] MEDS ORDERED: KETOROLAC TROMETHAMINE 15 MG/ML VIAL IVPUSH ONE (01:46)
[2023-01-23 01:47] LABS: BILIRUBIN,TOTAL 0.4 mg/dL (0.2-1)
[2023-01-23 04:15] LABS: ANISOCYTOSIS 1+; MACROCYTOSIS 0
== END 2023-01-23 03:40 | disposition home or self-care (01) ==
LOC: JER 23:16
PROC: 3E033GC Introduction of Other Therapeutic Substance into Peripheral Vein, Percutaneous Approach (ICD-10-PCS; principal; 2023-01-22)
DX: R51.9 Headache, unspecified (principal); H53.8 Other visual disturbances
CPT/HCPCS: 36415; 70450-TC; 80053; 81003; 83540; 83735; 84100; 84484; 84703; 85025; 87086; 99285-25